=== PATIENT | male | born 1960 | race Caucasian/White ===

== ENCOUNTER 2018-10-16 13:46 | Outpatient (CLI) | payer BC ==
--- NOTE | 2018-10-16 15:23 | ULT ---
ULTRASOUND LOWER ARTERIOVASCULAR UNILATERAL SCAN: History Groin pain. COMPARISON: None. FINDINGS: Real-time landaverde scale, color Doppler, and spectral analysis of the right groin was performed to evalua te for pseudoaneurysm. There is no pseudoaneurysm. Mildly prominent inguinal lymph node. IMPRESSION: No pseudoaneurysm. No hematoma. POS: [facility]
== END 2018-10-16 13:47 | disposition home or self-care (01) ==
LOC: BICULT 13:46
PROVIDERS: ATTEND Internal Medicine Cardiovascular Disease
DX: R10.31 Right lower quadrant pain (principal)
CPT/HCPCS: 93926

== ENCOUNTER → 2022-08-18 | Outpatient (CLI) | payer BC | LOC: CTENTCT 16:07 | PROVIDERS: ATTEND Student in an Organized Health Care Education/Training Program | DX: J34.89 Other specified disorders of nose and nasal sinuses (principal) | CPT/HCPCS: 70486 ==